=== PATIENT | female | born 1975 | race Caucasian/White ===

== ENCOUNTER 2021-01-06 10:48 | Emergency (ER) | payer OTHER ==
[2021-01-06 10:56] VITALS: BP 108/65; PULSE 55; TEMP 98.3; BMI 32.3
[2021-01-06 13:09] LABS: BASO % 1.3 % (0-2.0); EOS % 1.4 % (0-4.5); HEMATOCRIT 37.8 % (32.4-45.2); HEMOGLOBIN 13.1 GM/dL (10.7-15.3); MCH 31.9 pg (25.7-33.7); MCHC 34.6 g/dl (32.0-36.0); MEAN CELL VOLUME 92.2 fl (80-96); MEAN PLT VOLUME 10.1 fl (7.5-11.1); MONO % 6.7 % (3.8-10.2); NEUT % 66.6 % (42.8-82.8); PLATELET COUNT 174 10^3/uL (134-434); RDW 15.4 % (11.6-15.6); WHITE BLOOD COUNT 7.9 K/mm3 (4.0-10.0)
[2021-01-06 13:15] LABS: PH,URINE 7.5 (5.0-8.0); URINE APPEARANCE CLEAR; URINE BILIRUBIN NEGATIVE (NEGATIVE); URINE COLOR YELLOW; URINE GLUCOSE (UA) NEGATIVE (NEGATIVE); URINE KETONE NEGATIVE (NEGATIVE); URINE LEUK ESTERASE NEGATIVE (NEGATIVE); URINE NITRITE NEGATIVE (NEGATIVE); URINE PROTEIN NEGATIVE (NEGATIVE)
[2021-01-06 13:26] LABS: CHLORIDE 107 mmol/L (98-107); SODIUM 140 mmol/L (136-145)
[2021-01-06 13:30] LABS: ALBUMIN 3.4 g/dl (3.4-5.0); ANION GAP 3 MMOL/L (8-16); BLOOD UREA NITROGEN 6.6 mg/dL (7-18); CALCIUM 8.6 mg/dL (8.5-10.1); CO2 30 mmol/L (21-32); GLUCOSE,RANDOM 96 mg/dL (74-106)
[2021-01-06 13:38] LABS: SGOT/AST 18 U/L (15-37); SGPT/ALT 15 U/L (13-61)
[2021-01-06 13:39] LABS: CREATININE 0.7 mg/dL (0.55-1.3); N-TERMINAL BNP 465.6 pg/ml (5-125)
[2021-01-06 13:40] LABS: BILIRUBIN,TOTAL 0.4 mg/dL (0.2-1); TOT PROT 6.4 g/dl (6.4-8.2)
[2021-01-06 13:41] LABS: ALK PHOS 52 U/L (45-117)
== END 2021-01-06 15:44 | disposition home or self-care (01) ==
LOC: JER 10:48
DX: R60.0 Localized edema (principal)
CPT/HCPCS: 36415; 71046-TC-FY; 80053; 81003; 82550; 83880; 84484; 84703; 85025; 87086; 87186; 93005; 93010; 93970-TC; 99285-25

== ENCOUNTER 2024-02-13 13:40 | Emergency (ER) | payer OTHER ==
[2024-02-13 13:50] VITALS: BP 121/75; PULSE 53; RESP 20; TEMP 98.1; BMI 32.3
[2024-02-13] MEDS ORDERED: KETOROLAC TROMETHAMINE 30 MG/1 ML VIAL ONE (15:29)
[2024-02-13] MEDS ORDERED: LIDOCAINE 4% PATCH TP ONE (15:29)
[2024-02-13] MEDS ORDERED: CYCLOBENZAPRINE HCL 10 MG TABLET (FP) ONE (15:29)
[2024-02-13] MEDS: CYCLOBENZAPRINE HCL 10 MG TABLET (FP) PO ONE (15:35)
[2024-02-13] MEDS: LIDOCAINE 4% PATCH TP ONE (15:35)
[2024-02-13] MEDS: KETOROLAC TROMETHAMINE 30 MG/1 ML VIAL IM ONE (15:35)
[2024-02-13] MEDS ORDERED: LIDOCAINE PATCH REMOVAL MC SCH (22:00)
== END 2024-02-13 15:36 | disposition home or self-care (01) ==
LOC: JERFT 13:40
PROC: 3E0233Z Introduction of Anti-inflammatory into Muscle, Percutaneous Approach (ICD-10-PCS; principal; 2024-02-13)
DX: M54.16 Radiculopathy, lumbar region (principal)
CPT/HCPCS: 99284-25